=== PATIENT | female | born 1995 | race Caucasian/White ===

== ENCOUNTER 2016-11-13 18:07 | Emergency (ER) | payer MEDICARE, MEDICAID ==
[~2016-11-13] VITALS: Wt 81.0 kg
[2016-11-13] MEDS ORDERED: AMO500 PO (18:33)
[2016-11-13] MEDS ORDERED: IBUP-1542 PO (18:33)
--- NOTE | 2016-11-13 18:35 | ERD ---
ER Documentation Chief Complaint Date/Time DATE: 11/13/16 TIME: 18:34 Chief Complaint FEVER AD SORE THROAT SINCE YESTERDAY HPI This 20-year-old female complains of a one-week history of fever and sore throat. She denies cough, vomiting, abdominal pain, diarrhea, urinary complaints. She is here with a child with URI symptoms and fever as well ROS All systems reviewed and are negative except as per history of present illness. Medications Home Meds Active Scripts Amoxicillin* (Amoxicillin*) 500 Mg Cap, 500 MG PO TID for 10 Days, CAP Prov:DANIEL BECKMAN MD 11/13/16 Ibuprofen* (Motrin*) 600 Mg Tab, 600 MG PO Q6, #15 TAB Prov:DANIEL BECKMAN MD 11/13/16 Reported Medications [none] No Conflict Check 07/24/13 Allergies Allergies: Coded Allergies: Sulfa (Sulfonamide Antibiotics) (Verified Allergy, rash, 07/24/13) PMhx/Soc Medical and Surgical Hx: pt denies Medical Hx, pt denies Surgical Hx Hx Alcohol Use: No Hx Substance Use: No Hx Tobacco Use: No Smoking Status: Never smoker Physical Exam Vitals Vital Signs Date Time Temp Pulse Resp B/P Pulse Ox O2 Delivery O2 Flow Rate FiO2 11/13/16 18:17 99.5 81 18 144/71 99 Physical Exam Const: [] Alert, [id number] Head: Atraumatic Eyes: Normal Conjunctiva ENT: Normal External Ears, Nose and Mouth. TMs normal. Erythematous oropharynx with 2+ tonsils. Airways patent and uvula midline. Neck: Full range of motion..~ No meningismus. Resp: Clear to auscultation bilaterally Cardio: Regular rate and rhythm, no murmurs Abd: Soft, non tender, non distended. Normal bowel sounds Skin: No petechiae or rashes Back: No midline or flank tenderness Ext: No cyanosis, or edema Neur: Awake and alert Psych: Normal Mood and Affect Procedures/MDM Patient presents with URI symptoms and signs of pharyngitis. Given the duration she will treated with amoxicillin and ibuprofen. There is no evidence of abscess, airway obstruction or respiratory distress or hypoxemia. The patient was stable with no new complaints during the ER course. Clinically, there is no current evidence to suggest meningitis, sepsis, acute abdomen, pneumonia, acute coronary syndrome, pulmonary embolism, or any other emergent condition appearing to require further evaluation or hospitalization. The patient should certainly return for any new or worsening symptoms per the aftercare instructions. They should otherwise follow-up with her primary care doctor for reevaluation this week. Departure Diagnosis: Primary Impression: Sore throat Additional Impression: Fever Fever type: unspecified Qualified Code: R50.9 - Fever, unspecified fever cause Condition: Stable Patient Instructions: Fever Control (Adult), Pharyngitis, Strep (Presumed) Additional Instructions: Recheck for new or worsening symptoms or primary care doctor. DANIEL BECKMAN MD Nov 13, 2016 18:35
== END 2016-11-13 19:30 | disposition home or self-care (01) ==
LOC: FTE 18:07
DX: J02.9 Acute pharyngitis, unspecified (principal)
CPT/HCPCS: 99283

== ENCOUNTER 2017-03-23 21:09 | Emergency (ER) | payer MEDICARE, OTHER ==
[~2017-03-23] VITALS: Ht 162.6 cm; Wt 79.5 kg
[~2017-03-23 21:09] MED LIST: AMO500 PO; IBUP-1542 PO
[2017-03-23 21:16] VITALS: Ht 162.6 cm; Wt 79.5 kg
[2017-03-24] MEDS ORDERED: KETOROLAC 30 MG INJ IM STA (00:45)
[2017-03-24 01:07] LABS: URINE BLOOD (Dip) POC Negative (NEGATIVE)
--- NOTE | 2017-03-24 01:46 | ERD ---
ER Documentation Chief Complaint Date/Time DATE: 03/24/17 TIME: 01:43 Chief Complaint BIB SELF, CC: BACK PAIN HPI Is a 21-year-old female presents the emergency department today complaining of back pain for the past 3 years. Patient states that she always has the back pain but it has been worse over the past couple of days. States that she has not taken any medication for the pain because "ibuprofen and Tylenol does not help me". States that she has had back pain since 2013 when she had an epidural. Denies any fevers or chills, loss of bowel or bladder control. ROS All systems reviewed and are negative except as per history of present illness. Medications Home Meds Active Scripts Cyclobenzaprine Hcl* (Cyclobenzaprine Hcl*) 10 Mg Tablet, 10 MG PO QHS, #7 TAB Prov:MP MATOS PA-C 03/24/17 Naproxen* (Naprosyn*) 500 Mg Tablet, 500 MG PO BID Y for PAIN AND/OR INFLAMMATION, #30 TAB Prov:MP MATOS PA-C 03/24/17 Hydrocodone/Acetaminophen (Alamo 5-325 Tablet) 1 Each Tablet, 1 TAB PO Q6H Y for PAIN, #10 TAB Prov:MP MATOS PA-C 03/24/17 Amoxicillin* (Amoxicillin*) 500 Mg Cap, 500 MG PO TID for 10 Days, CAP Prov:DANIEL BECKMAN MD 11/13/16 Ibuprofen* (Motrin*) 600 Mg Tab, 600 MG PO Q6, #15 TAB Prov:DANIEL BECKMAN MD 11/13/16 Reported Medications [none] No Conflict Check 07/24/13 Discontinued Scripts Cyclobenzaprine Hcl* (Cyclobenzaprine Hcl*) 10 Mg Tablet, 10 MG PO QHS, #15 TAB Prov:MP MATOS PA-C 03/24/17 Allergies Allergies: Coded Allergies: Sulfa (Sulfonamide Antibiotics) (Verified Allergy, rash, 07/24/13) PMhx/Soc Medical and Surgical Hx: pt denies Medical Hx, pt denies Surgical Hx History of Surgery: No Anesthesia Reaction: No Hx Neurological Disorder: No Hx Respiratory Disorders: No Hx Cardiac Disorders: No Hx Psychiatric Problems: No Hx Miscellaneous Medical Probl: No Hx Alcohol Use: Yes (SOCIAL) Hx Substance Use: No Hx Tobacco Use: No Smoking Status: Never smoker Physical Exam Vitals Vital Signs Date Time Temp Pulse Resp B/P Pulse Ox O2 Delivery O2 Flow Rate FiO2 03/23/17 21:16 99.0 60 18 145/69 100 Physical Exam Const: NAD Head: Atraumatic Eyes: Normal Conjunctiva ENT: Normal External Ears, Nose and Mouth. Neck: Full range of motion..~ No meningismus. Resp: Clear to auscultation bilaterally Cardio: Regular rate and rhythm, no murmurs Skin: No petechiae or rashes Back: Lumbar bilateral paraspinal pain. Full AROM. Pulses 2+ DNVI Ext: No cyanosis, or edema Neur: Awake and alert Psych: Normal Mood and Affect Results 24 hrs Laboratory Tests Test 03/24/17 01:14 Bedside Urine pH (LAB) 6.0 Bedside Urine Protein (LAB) Negative Bedside Urine Glucose (UA) Negative Bedside Urine Ketones (LAB) Negative Bedside Urine Blood Negative Bedside Urine Nitrite (LAB) Negative Bedside Urine Leukocyte Esterase (L Negative Current Medications Medications (Trade) Dose Ordered Sig/Alex Route PRN Reason Start Time Stop Time Status Last Admin Dose Admin Ketorolac Tromethamine (Toradol) 30 mg ONCE STAT IM 03/24/17 00:45 03/24/17 00:47 DC 03/24/17 01:15 Acetaminophen/ Hydrocodone Bitart (Alamo (5/325)) 1 tab ONCE ONCE PO 03/24/17 02:00 03/24/17 02:01 03/24/17 01:54 Procedures/MDM This is Is a 21-year-old female presents emergency department today with chronic back pain for the past 3 years and worse over the past couple of days. Exam patient reports bilateral paraspinal back pain. She has full active range of motion. She is afebrile and otherwise well-appearing. I have low suspicion for cauda equina or abscess. Given that patient has had back pain for 3 years and do not feel she requires a x-ray at this time. She indicated that she does not go to her primary care doctor because "I do not like doctors". Did check a UA UA is negative for infection or hematuria. At this time is consistent with back pain that is chronic and likely to be musculoskeletal. She was given Toradol here in the emergency department and states "it made my pain worse". Patient was then given Alamo. Patient was given a short course of Alamo for home, Agustina Hudsonrosyn. At this time the patient is stable for discharge and outpatient management. Patient should follow up with their PCP in the next 1-2 days. They may return to the emergency department sooner for any persistent or worsening of symptoms. Patient understood and agreed with the plan. Departure Diagnosis: Primary Impression: Back pain Back pain location: low back pain Chronicity: chronic Back pain laterality : bilateral Sciatica presence: without sciatica Qualified Code: M54.5 - Chronic bilateral low back pain without sciatica Condition: MP Santiago PA-C Mar 24, 2017 01:46
[2017-03-24] MEDS ORDERED: HYDR-906 PO (01:55)
[2017-03-24] MEDS ORDERED: NAPR-260 PO (01:55)
[2017-03-24] MEDS ORDERED: CYCL-319 PO ×2 (01:55→01:56)
[2017-03-24] MEDS ORDERED: HYDROCODONE/APAP (5/325) TAB PO ONE (02:00)
[2017-03-24 02:03] VITALS: BP 110/67; PULSE 59; RESP 19; TEMP 98.7
== END 2017-03-24 02:03 | disposition home or self-care (01) ==
LOC: FTE 21:09
DX: M54.5 Low back pain (principal)
CPT/HCPCS: 81003; 96372; 99284; J1885

== ENCOUNTER 2017-08-01 18:13 | Emergency (ER) | END 2017-08-01 19:36 | disposition home or self-care (01) ==

== ENCOUNTER 2019-03-12 02:36 | Emergency (ER) | payer MEDICARE, OTHER ==
[~2019-03-12] VITALS: Ht 162.6 cm; Wt 76.2 kg
[~2019-03-12 02:36] MED LIST changes: +ACET500C5 PO; -AMO500 PO; +AMOX1TAB10 PO; +AMOX500C2 PO; +BENZ-6 PO; +CETI10TA19 PO; +CYCL10TA7 PO; +HYDR-4011 PO; +IBUP800T48 PO; +NAPR-985 PO; +OSEL75CA23 PO; +PRED20TA PO
[2019-03-12 02:39] VITALS: Ht 162.6 cm; Wt 76.2 kg
[2019-03-12 03:58] VITALS: BP 115/61; PULSE 78; RESP 17
[2019-03-12] MEDS ORDERED: predniSONE 20 MG TAB PO ONE (04:00)
[2019-03-12] MEDS ORDERED: IBUPROFEN 800 MG TAB PO ONE (04:00)
== END 2019-03-12 03:58 | disposition home or self-care (01) ==
LOC: FTE 02:36
DX: J32.9 Chronic sinusitis, unspecified (principal); J02.9 Acute pharyngitis, unspecified
CPT/HCPCS: 99283; J7512